=== PATIENT | female | born 1945 ===

== ENCOUNTER 2017-01-13 07:51 | Day surgery (SDC) | payer MEDICARE ==
[2017-01-13 08:56] VITALS: BMI 26.2
[2017-01-13] MEDS ORDERED: Propofol 10 mg/ml Inj (20 ML) ONE (09:15)
[2017-01-13 10:09] VITALS: O2SAT 100
[2017-01-13 10:52] VITALS: BP 179/86; PULSE 71; RESP 19; TEMP 97.5
--- NOTE | 2017-01-13 18:00 | CARD ---
APPROVED REPORT EKG Measurement Heart [id number] <Conclusion> Normal sinus rhythm Normal ECG
== END 2017-01-13 11:55 | disposition home or self-care (01) ==
LOC: ENDO 07:51
PROVIDERS: ATTEND Internal Medicine Gastroenterology
DX: D12.2 Benign neoplasm of ascending colon (principal); D12.4 Benign neoplasm of descending colon; D12.5 Benign neoplasm of sigmoid colon; K64.8 Other hemorrhoids; I10 Essential (primary) hypertension; E11.9 Type 2 diabetes mellitus without complications; K21.9 Gastro-esophageal reflux disease without esophagitis; I25.10 Atherosclerotic heart disease of native coronary artery without angina pectoris; E78.5 Hyperlipidemia, unspecified; E55.9 Vitamin D deficiency, unspecified; Z12.11 Encounter for screening for malignant neoplasm of colon
CPT/HCPCS: 45380; 82948; 88305; 93005; J2001; J2704; J7040

== ENCOUNTER 2018-12-31 12:03 | Outpatient (CLI) | payer MEDICARE | END 2018-12-31 12:04 | disposition home or self-care (01) | LOC: LAB 12:03 ==

== ENCOUNTER 2019-01-21 09:59 | Outpatient (CLI) | payer MEDICARE | END 2019-01-21 10:00 | disposition home or self-care (01) | LOC: RAD 09:59 ==

== ENCOUNTER 2019-02-08 10:47 | Day surgery (SDC) | payer MEDICARE ==
[2019-02-04 11:35] VITALS: BMI 23.0
[2019-02-08 11:51] LABS: BASO # 0.02 K/mm3 (0.0-2.0); BASO % 0.4 % (0.0-3.0); EOS # 0.1 (0.0-0.7); EOS % 1.7 % (1.5-5.0); HEMOGLOBIN 12.7 g/dL (12.0-16.0); LYMPH # 1.2 (1.2-3.4); LYMPH % 23.4 % (22.0-35.0); MEAN CELL VOLUME 83.6 fl (80.0-105.0); MEAN CORPUSCULAR HEMOGLOBIN 27.7 pg (25.0-35.0); MEAN CORPUSCULAR HGB CONC 33.2 g/dl (31.0-37.0); MEAN PLATELET VOLUME 10.1 fl (7.0-11.0); MONO # 0.3 (0.1-0.6); MONO % 6.6 % (1.0-6.0); RBC 4.58 10^6/uL (3.5-6.1); RED CELL DISTRIBUTION WIDTH 13.2 % (11.5-14.5); WHITE BLOOD COUNT 5.2 10^3/uL (4.5-11.0)
[2019-02-08 11:54] VITALS: O2SAT 100
[2019-02-08 12:00] LABS: INR 0.97
[2019-02-08] MEDS ORDERED: Lidocaine PF 2% (5 ml) Inj (For Cardiac Arrhy) ONE (15:33)
[2019-02-08] MEDS ORDERED: Nitroglycerin 50mg in D5W 50 MG/250 ML BOTTLE IV ONE (15:33)
[2019-02-08] MEDS ORDERED: Iodixanol 320 mg/ml 150 ml Bottle IV ONE (15:34)
[2019-02-08] MEDS ORDERED: Iodixanol 320 MG/ML 200 ML BOTTLE IV ONE (15:34)
[2019-02-08] MEDS ORDERED: Midazolam 2 MG/2 ML VIAL ONE (15:58)
[2019-02-08] MEDS ORDERED: Iodixanol 320 MG/ML 100 ML BOTTLE IV ONE (16:45)
[2019-02-08] MEDS ORDERED: Oxycodone/Acetaminophen 5/325 mg Tab PO PRN (17:30)
[2019-02-08] MEDS ORDERED: Sodium Chloride 0.45% 1,000 ML IV SCH (17:30)
--- NOTE | 2019-02-08 19:43 | VASCULAR ---
Date of service: 02/08/2019 PROCEDURE: 1. Abdominal aortogram and bilateral lower extremity runoff with left selective views. 2. Left external iliac artery angioplasty and stent placement. 3. Left SFA and popliteal artery angioplasty with stent graft placement HISTORY: Severe peripheral vascular disease. Smoker. Severe bilateral claudication, greater on the left than the right. Early rest pain on the left. PHYSICIAN(S): Brian Simon M.D. TECHNIQUE: The relative risks and indications of the procedure were explained to the patient and her daughter and consent obtained. The patient was hydrated prior to the procedure and the appropriate labs drawn. The patient was placed supine on the arteriogram table and the right groin prepped and draped in the usual sterile fashion. Conscious sedation and monitoring were provided throughout the procedure by a nurse. Under ultrasound guidance, the right common femoral artery was punctured micropuncture set. A 5 Malagasy sheath was placed. Through the sheath over guidewire a 5 Malagasy flush catheter was placed in the abdominal aorta at the level renal arteries and a PA DSA abdominal and pelvic arteriogram performed. The catheter was pulled Down the bifurcation and bilateral oblique DSA pelvic arteriograms performed. Overlapping bilateral lower extremity DSA arteriograms were obtained from the inguinal ligaments to the ankles. A 0.035 glidewire was advanced over the bifurcation and placed in the left profunda femoral artery. A 6 Malagasy 45 cm sheath was advanced over the bifurcation and used to measure pressures across the left external iliac artery stenoses. A 25 mm systolic gradient was demonstrated. The left external iliac artery was dilated with an 8 millimeter balloon. Next an 8 mm x 100 mm self expanding stent was placed across the left external iliac artery. It was dilated with the 8 mm balloon. A good angiographic result was obtained. The severe diffuse disease in the left SFA and popliteal artery negotiated with a 5 Malagasy catheter and angled Glidewire. A 0.018 support wire was placed. The left popliteal artery above the knee and distal left SFA were dilated with a 5 mm balloon. The proximal left SFA was dilated with a 6 mm balloon. There was a residual dissection left popliteal artery above the knee. Subsequently a 5 mm x 5 cm Viabahn stent graft was deployed in the left popliteal artery. Post dilatation with a 5 mm balloon was performed. Completion angiograms were obtained. The sheath was removed hemostasis obtained with a Perclose device. The patient tolerated the procedure well. FINDINGS: There are single renal arteries bilaterally which are widely patent and normal in appearance. The nephrograms are symmetric in appearance. The infrarenal abdominal aorta is smoothly diseased and patent without radiographically significant stenosis. The aortic bifurcation is patent. The common iliac arteries are tortuous but are patent. There is moderate disease of the left external iliac artery. A 25 mm systolic gradient was demonstrated. The right external iliac artery appears patent. The internal iliac arteries are patent bilaterally. Right lower extremity: The right common femoral artery is patent. The right profunda femoral artery is hypertrophied.. There is diffuse disease of the right SFA and popliteal arteries. Severe disease of the right popliteal artery above the knee is noted. There is severe right trifurcation and tibial occlusive disease. There is single vessel runoff via the right peroneal artery. The right anterior tibial and posterior tibial artery is occluded proximally. There is reconstitution of the right dorsalis pedis artery. The right plantar arch is not opacified. Left lower extremity: Left common femoral artery is patent. The left profunda femoral artery is hypertrophied.. There is diffuse disease of the left SFA with severe disease in the adductor canal and left popliteal artery above the knee. There is severe left trifurcation and tibial occlusive disease. All 3 tibial arteries are occluded proximally. Chronic collaterals are present. There is reconstitution of the mid to distal left peroneal artery. There is reconstitution of the left dorsalis pedis artery. The left plantar arch is not opacified. IMPRESSION: 1. Severe bilateral trifurcation, tibial, and pedal occlusive disease. 2. Successful left external iliac artery angioplasty and stent placement 3. Successful left SFA and popliteal artery angioplasty with focal left popliteal artery stent graft placement.
[2019-02-09 06:39] LABS: HEMOGLOBIN 11.6 g/dL (12.0-16.0); MEAN CELL VOLUME 83.2 fl (80.0-105.0); MEAN CORPUSCULAR HEMOGLOBIN 27.4 pg (25.0-35.0); MEAN PLATELET VOLUME 10.3 fl (7.0-11.0); RBC 4.23 10^6/uL (3.5-6.1); RED CELL DISTRIBUTION WIDTH 13.2 % (11.5-14.5); WHITE BLOOD COUNT 7.6 10^3/uL (4.5-11.0)
[2019-02-09 08:00] LABS: CALCIUM 8.2 mg/dL (8.4-10.5)
[2019-02-09] MEDS: Insulin Regular 1 UNITS/0.01 ML ML SC SCH ×3 (09:31→17:29)
[2019-02-09 12:54] VITALS: BP 124/74; RESP 20; TEMP 98.1
[2019-02-09 17:29] VITALS: PULSE 76
== END 2019-02-09 17:55 | disposition home or self-care (01) ==
LOC: SDSVAS 10:47 → 2RSO 19:01 → SDSVAS 02-09 17:55
PROVIDERS: ATTEND Radiology Vascular & Interventional Radiology
DX: I70.213 Atherosclerosis of native arteries of extremities with intermittent claudication, bilateral legs (principal); F17.200 Nicotine dependence, unspecified, uncomplicated
CPT/HCPCS: 36415 ×2; 37221; 37226; 75625; 75716; 80048 ×2; 82948; 85025; 85027; 85610; 85730; 99152; 99153; C1725 ×5; C1760 ×2; C1769 ×7; C1876 ×2; C1887 ×4; C1894; J1644 ×2; J1940; J2250; J2405; J3010; J7030 ×2; Q9966; Q9967 ×2